=== PATIENT | male | born 1980 | race Caucasian/White ===

== ENCOUNTER 2020-10-01 04:23 | Emergency (ER) | payer SELFPAY ==
[~2020-10-01] VITALS: Ht 193 cm; Wt 136.1 kg
[2020-10-01 05:22] LABS: HEMATOCRIT 43.6 % (39.0-50.0); HEMOGLOBIN 14.2 g/dl (14.0-18.0); IMMATURE GRANULOCYTES 0.2 % (0.0-5.0); MEAN CELL VOLUME 89.2 fL CALC (80.0-100.0); MEAN CORPUSCULAR HGB CONC 32.6 g/dL CAL (32.0-36.0); NEUT# 5.74 thou/uL (1.82-7.42); RED BLOOD COUNT 4.89 mill/uL (4.70-6.10); RED CELL DISTRI WIDTH 13.3 % (11.5-15.5)
[2020-10-01 05:30] LABS: ALBUMIN 4.3 g/dL (3.2-5.0); ALKALINE PHOSPHATASE 88 u/l (38-126); ANION GAP 10 (6-22 (CALC)); BILIRUBIN, TOTAL 0.5 mg/dL (0.0-1.4); BUN 12 mg/dL (9-20); BUN/CREATININE RATIO 11 (12-20 (CALC)); CARBON DIOXIDE 26 mmol/l (22-30); CHLORIDE 102 mmol/l (95-108); CREATININE 1.1 mg/dL (0.7-1.3); GFR > 60 ML/MIN (>=60 (CALC)); GFR FOR AFR.AMER. > 60 ML/MIN (>=60 (CALC)); POTASSIUM 3.5 mmol/l (3.5-5.1); SGOT/AST 25 u/l (17-59); SODIUM 135 mmol/l (137-146); TOTAL PROTEIN 7.7 g/dL (6.3-8.2)
[2020-10-01 05:37] LABS: MAGNESIUM 2.2 mg/dL (1.6-2.3)
[2020-10-01 05:47] LABS: ETHYL ALCOHOL 0 mg/dl (0-30)
[2020-10-01 07:41] LABS: URINE BILIRUBIN - DIPSTICK NEGATIVE (NEGATIVE); URINE BLOOD DIPSTICK NEGATIVE (NEGATIVE); URINE COLOR YELLOW; URINE GLUCOSE - DIPSTICK NEGATIVE (NEGATIVE); URINE KETONE NEGATIVE (NEGATIVE); URINE LEUK ESTERASE NEGATIVE (NEGATIVE); URINE NITRITE - DIPSTICK NEGATIVE (Negative); URINE PROTEIN - DIPSTICK NEGATIVE (NEG-TRACE); URINE SPECIFIC GRAVITY <=1.005; URINE UROBILINOGEN - DIPSTICK 0.2 E.U./dL (0.2)
[2020-10-01 10:43] VITALS: BP 133/63
[2020-10-02] MEDS ORDERED: CYMBALTA60 MG PO (15:55)
[2020-10-02] MEDS ORDERED: MECLIZINE25 MG PO (15:56)
[2020-10-02] MEDS ORDERED: DRAMAMINE50 M1 PO (15:57)
[2020-10-02] MEDS ORDERED: IMITREX50 M1 PO (15:58)
[2020-10-02] MEDS ORDERED: ACID CONTROL MA20 MG PO (15:59)
[2020-10-02] MEDS ORDERED: DICYCLOMINE HCL10 MG PO (15:59)
[2020-10-02] MEDS ORDERED: TOPAMAX100 M1 PO (16:00)
== END 2020-10-01 10:28 | disposition designated cancer center or children's hospital (05) | DRG 880 ==
LOC: ED 04:23
PROVIDERS: Emergency Medicine
DX: R44.0 Auditory hallucinations (principal); I10 Essential (primary) hypertension; F31.9 Bipolar disorder, unspecified; F41.9 Anxiety disorder, unspecified; F17.210 Nicotine dependence, cigarettes, uncomplicated

== ENCOUNTER 2020-10-01 12:58 | Emergency (ER) | payer SELFPAY ==
[~2020-10-01] VITALS: Ht 193 cm; Wt 118.0 kg
[2020-10-02 12:57] VITALS: BP 138/68
[2020-10-02] MEDS ORDERED: CYMBALTA60 MG PO (15:55)
[2020-10-02] MEDS ORDERED: MECLIZINE25 MG PO (15:56)
[2020-10-02] MEDS ORDERED: DRAMAMINE50 M1 PO (15:57)
[2020-10-02] MEDS ORDERED: IMITREX50 M1 PO (15:58)
[2020-10-02] MEDS ORDERED: ACID CONTROL MA20 MG PO (15:59)
[2020-10-02] MEDS ORDERED: DICYCLOMINE HCL10 MG PO (15:59)
[2020-10-02] MEDS ORDERED: TOPAMAX100 M1 PO (16:00)
== END 2020-10-02 12:57 | disposition designated cancer center or children's hospital (05) | DRG 880 ==
LOC: ED 12:58
DX: R44.3 Hallucinations, unspecified (principal); R45.851 Suicidal ideations; I10 Essential (primary) hypertension; F41.9 Anxiety disorder, unspecified; F31.9 Bipolar disorder, unspecified; R26.2 Difficulty in walking, not elsewhere classified; F17.200 Nicotine dependence, unspecified, uncomplicated; Z20.822 Contact with and (suspected) exposure to COVID-19; R44.0 Auditory hallucinations; F17.210 Nicotine dependence, cigarettes, uncomplicated